=== PATIENT | male | born 1985 | race Two or more races ===

== ENCOUNTER 2023-09-20 23:07 | Emergency (ER) | payer MEDICAID, OTHER ==
[~2023-09-20] VITALS: Ht 170.2 cm; Wt 88.0 kg
[2023-09-20 23:20] VITALS: BP 161/92; PULSE 100; RESP 18; O2SAT 96
== END 2023-09-21 03:41 | disposition left against medical advice (07) ==
LOC: ER 23:07
DX: R22.31 Localized swelling, mass and lump, right upper limb (principal); Z53.21 Procedure and treatment not carried out due to patient leaving prior to being seen by health care provider

== ENCOUNTER 2024-05-12 13:10 | Emergency (ER) | payer MEDICAID ==
[~2024-05-12] VITALS: Ht 170.2 cm; Wt 79.0 kg
[2024-05-12 14:39] VITALS: BP 140/87; TEMP 98.7
[2024-05-12] MEDS: INSULIN LISPRO (HUMAN) 100 UNITS/ML ML SC ONE (14:43)
[2024-05-12] MEDS: SODIUM CHLORIDE 0.9% 1,000 ML IV ONE (14:54)
[2024-05-12 14:55] VITALS: PULSE 84; RESP 14; O2SAT 96
[2024-05-12] MEDS: SULFAMETHOX W/TRIMETH(800/160MG) DS TAB PO ONE (15:51)
[2024-05-12] MEDS ORDERED: ACET500T58 PO (16:10)
[2024-05-12] MEDS ORDERED: BACDST PO (16:10)
[2024-05-12] MEDS ORDERED: IBUP-1455 PO (16:10)
== END 2024-05-12 16:19 | disposition home or self-care (01) ==
LOC: ER 13:10
DX: L02.31 Cutaneous abscess of buttock (principal); E11.65 Type 2 diabetes mellitus with hyperglycemia; Z88.1 Allergy status to other antibiotic agents; Z88.5 Allergy status to narcotic agent; Z88.8 Allergy status to other drugs, medicaments and biological substances
CPT/HCPCS: 82962; 96360; 96372; 99283; J1815; J7030